=== PATIENT | female | born 1960 | race Caucasian/White ===

== ENCOUNTER → 2018-06-12 | Outpatient (CLI) | payer BC ==
[~2018-06-12] MED LIST: ALLO100 PO; ASCO500 PO; ASPI81CH PO; ATOR40TA PO; CLOP75 PO; CYCL10 PO; FISH1000 PO; INDERAL XL80 MG PO; LISHYD1012; METPRE4DP PO; Norco 5-325 Ta1 EACH PO; OMEP20ER PO; Simvastatin40 MG PO
== END | disposition home or self-care (01) ==
LOC: LAB SHORT 18:49 → LAB 18:49
PROVIDERS: Obstetrics & Gynecology
DX: Z01.419 Encounter for gynecological examination (general) (routine) without abnormal findings (principal)
CPT/HCPCS: 87624; G0123

== ENCOUNTER → 2019-06-16 | Outpatient (CLI) | payer BC ==
[2019-06-18 13:07] LABS: HPV 16 Negative (Negative); HPV 18 Negative (Negative); HPV OTHER HR TYPES Negative (Negative)
== END | disposition home or self-care (01) ==
LOC: LAB 14:37 → LAB SHORT 14:37
PROVIDERS: Obstetrics & Gynecology
DX: Z01.419 Encounter for gynecological examination (general) (routine) without abnormal findings (principal)
CPT/HCPCS: 87624; G0123